=== PATIENT | female | born 1995 | race American Indian/Alaskan Native ===

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

== ENCOUNTER 2018-05-27 09:58 | Emergency (ER) | payer MEDICAID, OTHER ==
--- NOTE | 2018-05-27 10:50 | XRay Report ---
AP CHEST: HISTORY: chest pain AP view of the chest demonstrates a normal mediastinal and cardiac contour with clear lungs and normal bony and soft tissue structures. IMPRESSION: Unremarkable AP chest.
[2018-05-27] MEDS ORDERED: DUONEB *Not for PRN Use IH ONE (11:15)
--- NOTE | 2018-05-27 11:17 | Emergency Department Report ---
ED Chest Pain HPI - General Chief Complaint: Chest Pain Stated Complaint: CHEST PAIN/HEAD ACHE Time Seen by Provider: 05/27/18 10:47 Source: patient Mode of arrival: Ambulatory Limitations: No Limitations - History of Present Illness Initial Comments: 22 year-old female presents to the emergency department with complaint of a two-week history of intermittent midsternal chest pain. She says it is a sharp pain without radiation. She denies any shortness of breath but says that it "feels like the room is closing in on me." She has a past medical history of asthma. She is a tobacco smoker but denies any illicit drug use. No recent travel or sick contacts at home. She denies any lower extremity swelling. She has not taken anything for her symptoms prior to arrival. She does not have a primary care physician. Severity scale (0 -10): 6 - Related Data Previous Rx's Medication Instructions Recorded Last Taken Type Fluticasone [Flonase] 1 spray NS QDAY #1 bottle 07/17/16 Unknown Rx Loratadine [Claritin] 10 mg PO DAILY #30 tablet 07/17/16 Unknown Rx RX: Promethazine /Codeine 5 ml PO Q6H PRN #100 ml 07/17/16 Unknown Rx [Phenergan/Codeine 6.25-10 mg/5 ml] guaiFENesin/CODEINE [Robitussin AC] 5 ml PO Q6H PRN #100 ml 05/27/18 Unknown Rx Allergies Allergy/AdvReac Type Severity Reaction Status Date / Time No Known Allergies Allergy Verified 05/27/18 09:58 Heart Score - HEART Score History: Slightly suspicious EKG: Normal Age: < 45 Risk factors: 1-2 risk factors Troponin: < normal limit HEART Score: 1 - Critical Actions Critical Actions: 0-3 pts:0.9-1.7%risk of adverse cardiac event.Candidate for discharge ED Review of Systems ROS: Stated complaint: CHEST PAIN/HEAD ACHE Other details as noted in HPI Comment: All other systems reviewed and negative Constitutional: denies: chills, fever Eyes: denies: eye pain, vision change ENT: denies: ear pain, throat pain Respiratory: cough. denies: shortness of breath Cardiovascular: chest pain. denies: edema Gastrointestinal: denies: abdominal pain, vomiting Genitourinary: denies: dysuria, discharge Musculoskeletal: denies: back pain, arthralgia Skin: denies: rash, lesions Neurological: denies: headache, weakness ED Past Medical Hx - Past Medical History Hx Asthma: Yes - Surgical History Past Surgical History?: No - Social History Smoking Status: Current Every Day Smoker Substance Use Type: None - Medications Home Medications: Home Medications Medication Instructions Recorded Confirmed Last Taken Type Fluticasone [Flonase] 1 spray NS QDAY #1 bottle 07/17/16 Unknown Rx Loratadine [Claritin] 10 mg PO DAILY #30 tablet 07/17/16 Unknown Rx RX: Promethazine /Codeine 5 ml PO Q6H PRN #100 ml 07/17/16 Unknown Rx [Phenergan/Codeine 6.25-10 mg/5 ml] guaiFENesin/CODEINE [Robitussin AC] 5 ml PO Q6H PRN #100 ml 05/27/18 Unknown Rx ED Physical Exam - General Limitations: No Limitations - Other Other exam information: GENERAL: The patient is well-developed well-nourished. HEENT: Normocephalic. Atraumatic. Patient has moist mucous membranes. EYES: Extraocular motions are intact. Pupils are equal and reactive to light bilaterally. NECK: Supple. Trachea is midline. CHEST/LUNGS: Clear to auscultation. There is no respiratory distress noted. An occasional bronchospastic cough is heard during examination. There is some reproducible chest pain to palpation of the chest wall. No crepitus or deformity. HEART/CARDIOVASCULAR: Regular. There is mild tachycardia. There is no obvious murmur. ABDOMEN: Abdomen is soft, nontender. Patient has normal bowel sounds. There is no abdominal distention. SKIN: Skin is warm and dry. NEURO: The patient is awake, alert, and oriented. The patient is cooperative. The patient has no focal neurologic deficits. The patient has normal speech. MUSCULOSKELETAL: There is no tenderness or deformity. There is no evidence of acute injury. ED Course Vital Signs 05/27/18 05/27/18 05/27/18 10:02 10:59 11:00 Temperature 98.5 F Pulse Rate 114 H 78 84 Pulse Rate [ Anterior Bilateral Throughout] Respiratory 18 21 26 H Rate Respiratory Rate [Anterior Bilateral Throughout] Blood Pressure 143/89 120/67 Blood Pressure [Right] O2 Sat by Pulse 100 100 Oximetry 05/27/18 05/27/18 12:27 13:11 Temperature Pulse Rate 77 Pulse Rate [ 73 Anterior Bilateral Throughout] Respiratory 16 Rate Respiratory 17 Rate [Anterior Bilateral Throughout] Blood Pressure Blood Pressure 124/72 [Right] O2 Sat by Pulse 99 Oximetry NOMI score - Nomi Score Age > 65: (0) No Aspirin use within the Past 7 Days: (0) No 3 or more CAD Risk Factors: (0) No 2 or more Angina events in past 24 hrs: (1) Yes (If pain is considered angina) Known CAD with more than 50% Stenosis: (0) No Elevated Cardiac Markers: (0) No ST Deviation Greater than 0.5mm: (0) No NOMI Score: 1 ED Medical Decision Making - Lab Data Result diagrams: 05/27/18 11:38 05/27/18 11:38 - EKG Data -: EKG Interpreted by Me EKG shows normal: sinus rhythm, axis, intervals, QRS complexes, ST-T waves Rate: normal - EKG Data When compared to previous EKG there are: previous EKG unavailable Interpretation: normal EKG - Radiology Data Radiology results: image reviewed interpreted by me: Chest x-ray does not show any pneumothorax, pleural effusion, pneumonia or obvious focal consolidation. - Medical Decision Making 22-year-old female presents with a two-week history of intermittent chest pain. Her only risk factor is tobacco use. EKG did not show any signs of ST elevation DE, ischemia or dysrhythmia. Chest x-ray did not show any pneumonia, pleural effusions, focal consolidation or pneumothorax. Labs were unremarkable including a negative troponin. The patient was given some Toradol for her discomfort. She was also given a DuoNeb. She has a bronchospastic cough. Vital signs stable throughout her ED course. The patient appears safe for discharge home. She was given Robitussin-AC for her cough and has an albuterol inhaler at home to use. She was given referrals for primary care and cardi ology. She will return to the ER with any worsening of her symptoms or any acute distress. - Differential Diagnosis DE, Bronchitis, Pneumonia, Asthma Critical Care Time: No Critical care attestation.: If time is entered above; I have spent that time in minutes in the direct care of this critically ill patient, excluding procedure time. ED Disposition Clinical Impression: Atypical chest pain URI (upper respiratory infection) Qualifiers: URI type: unspecified viral URI Qualified Code(s): J06.9 - Acute upper respiratory infection, unspecified Disposition: DC- TO HOME OR SELFCARE Is pt being admited?: No Condition: Stable Instructions: Chest Pain (ED) Additional Instructions: Please follow up with a primary care physician in the next few days. I have also given a referral for a local director of enterprise architecture, Dr. Cevallos, to follow up with you continue to have the intermittent chest pains. Return to the emergency Department with any worsening of your symptoms or any acute distress. I have prescribed Robitussin-AC for your cough. You have been prescribed a medication that can be sedating. Therefore, this medication cannot be taken prior to driving, working, being responsible for children, and cannot be mixed with alcohol of any quantity. Prescriptions: guaiFENesin/CODEINE [Robitussin AC] 5 ml PO Q6H PRN #100 ml PRN Reason: Cough Referrals: CHRISTIE DOUGLAS DO [Primary Care Provider] - 3-5 Days GERMAINE CEVALLOS MD [Staff Physician] - 3-5 Days [facility] [Outside] - 3-5 Days Forms: Work/School Release Form(ED) Time of Disposition: 13:00
[2018-05-27 12:00] LABS: Basophils # (Auto) 0.1 K/mm3 (0.0-0.1); Basophils % (Auto) 1.3 % (0.0-1.8); Eosinophils # (Auto) 0.3 K/mm3 (0.0-0.4); Eosinophils % (Auto) 6.7 % (0.0-4.3); Hemoglobin 13.5 gm/dl (10.1-14.3); Lymphocytes # (Auto) 1.5 K/mm3 (1.2-5.4); Lymphocytes % (Auto) 28.5 % (13.4-35.0); Mean Corpuscular HGB Conc 34 % (30-34); Mean Corpuscular Volume 85 fl (79-97); Monocytes # (Auto) 0.5 K/mm3 (0.0-0.8); Monocytes % (Auto) 10.5 % (0.0-7.3); Platelet Count 275 K/mm3 (140-440); Red Blood Count 4.68 M/mm3 (3.65-5.03); Red Cell Distribution Width 13.8 % (13.2-15.2)
[2018-05-27] MEDS ORDERED: TORADOL IM ONE (12:13)
[2018-05-27 12:14] LABS: Alanine Aminotransferase 21 units/L (7-56); Albumin 3.8 g/dL (3.9-5); BUN/Creatinine Ratio 25; Blood Urea Nitrogen 15 mg/dL (7-17); Hemolysis Index 12
[2018-05-27 13:12] VITALS: BP 124/72
== END 2018-05-27 13:14 | disposition home or self-care (01) ==
LOC: ED 09:58
DX: J06.9 Acute upper respiratory infection, unspecified (principal); R07.89 Other chest pain; J45.909 Unspecified asthma, uncomplicated; F17.200 Nicotine dependence, unspecified, uncomplicated
CPT/HCPCS: 36415; 71045; 80053; 84484; 84703; 85025; 93005; 93010; 96372; 99284; J1885

== ENCOUNTER 2022-01-09 21:11 | Emergency (ER) | payer OTHER ==
--- NOTE | 2022-01-10 01:40 | Emergency Department Report ---
ED General Adult HPI - General Stated complaint: RT SIDE BREAST LUMP Source: patient, RN notes reviewed Limitations: No Limitations - History of Present Illness Initial comments: - History of Present Illness Initial comments: Patient 20-year-old female who presents for current abscess to right breast there is no fevers no chills no nausea or vomiting. Patient states abscess ruptured 4 days ago however has been recurring for the past year requesting referral to breast surgery. There is currently no fevers no chills no nausea no vomiting. There is minimal pain at 3/10 Essick relieved with ibuprofen p.o. as needed - Related Data Previous Rx's Medication Instructions Recorded Last Taken Type Fluticasone [Flonase] 1 spray NS QDAY #1 bottle 07/17/16 Unknown Rx Loratadine (Nf) [Claritin] 10 mg PO DAILY #30 tablet 07/17/16 Unknown Rx Promethazine /Codeine 5 ml PO Q6H PRN #100 ml 07/17/16 Unknown Rx [Phenergan/Codeine 6.25-10 mg/5 ml] guaiFENesin/CODEINE [Robitussin AC] 5 ml PO Q6H PRN #100 ml 05/27/18 Unknown Rx Ibuprofen [Motrin 800 MG tab] 800 mg PO Q8HR PRN #30 tablet 01/10/22 Unknown Rx cephALEXin [Keflex] 500 mg PO TID 7 Days #21 cap 01/10/22 Unknown Rx Allergies Allergy/AdvReac Type Severity Reaction Status Date / Time No Known Allergies Allergy Verified 05/27/18 09:58 ED Review of Systems ROS: Stated complaint: RT SIDE BREAST LUMP Other details as noted in HPI Constitutional: denies: chills, fever Eyes: denies: eye pain, eye discharge, vision change ENT: denies: ear pain, throat pain Respiratory: denies: cough, shortness of breath, wheezing Cardiovascular: denies: chest pain, palpitations Endocrine: no symptoms reported Gastrointestinal: denies: abdominal pain, nausea, diarrhea Genitourinary: denies: urgency, dysuria, discharge Musculoskeletal: denies: back pain, joint swelling, arthralgia Skin: other (Right breast mass). denies: rash, lesions Neurological: denies: headache, weakness, paresthesias Psychiatric: denies: anxiety, depression Hematological/Lymphatic: denies: easy bleeding, easy bruising Other: D Review of Systems ROS: Stated complaint: BODY PAIN Other details as noted in HPI Constitutional: denies: chills, fever Eyes: denies: eye pain, eye discharge, vision change ENT: denies: ear pain, throat pain Respiratory: denies: cough, shortness of breath, wheezing Cardiovascular: denies: chest pain, palpitations Endocrine: no symptoms reported Gastrointestinal: denies: abdominal pain, nausea, vomiting, diarrhea Genitourinary: denies: urgency, dysuria, discharge Musculoskeletal: denies: back pain, joint swelling, arthralgia Skin: other (Right breast abscess ) Neurological: denies: headache, weakness, paresthesias Psychiatric: denies: anxiety, depression Hematological/Lymphatic: denies: easy bleeding, easy bruising ED Past Medical Hx - Past Medical History Hx Asthma: Yes - Social History Smoking Status: Current Every Day Smoker Substance Use Type: None - Medications Home Medications: Home Medications Medication Instructions Recorded Confirmed Last Taken Type Fluticasone [Flonase] 1 spray NS QDAY #1 bottle 07/17/16 Unknown Rx Loratadine (Nf) [Claritin] 10 mg PO DAILY #30 tablet 07/17/16 Unknown Rx Promethazine /Codeine 5 ml PO Q6H PRN #100 ml 07/17/16 Unknown Rx [Phenergan/Codeine 6.25-10 mg/5 ml] guaiFENesin/CODEINE [Robitussin AC] 5 ml PO Q6H PRN #100 ml 05/27/18 Unknown Rx Ibuprofen [Motrin 800 MG tab] 800 mg PO Q8HR PRN #30 tablet 01/10/22 Unknown Rx cephALEXin [Keflex] 500 mg PO TID 7 Days #21 cap 01/10/22 Unknown Rx ED Physical Exam - General General appearance: alert, in no apparent distress - Head Head exam: Present: atraumatic, normocephalic - Eye Eye exam: Present: normal appearance - ENT ENT exam: Present: mucous membranes moist - Neck Neck exam: Present: normal inspection - Respiratory Respiratory exam: Present: normal lung sounds bilaterally. Absent: respiratory distress - Cardiovascular Cardiovascular Exam: Present: regular rate, normal rhythm. Absent: systolic murmur, diastolic murmur, rubs, gallop - GI/Abdominal GI/Abdominal exam: Present: soft, normal bowel sounds - Rectal Rectal exam: Present: deferred - Extremities Exam Extremities exam: Present: normal inspection, full ROM. Absent: tenderness - Back Exam Back exam: Present: normal inspection, full ROM. Absent: tenderness - Neurological Exam Neurological exam: Present: alert, oriented X3 - Psychiatric Psychiatric exam: Present: normal affect, normal mood - Skin Skin exam: Present: warm, dry, intact, erythema (Right breast mass 3:00 2 to 3 cm nonfluctuant no drainage mild erythema no axillary lymph no nipple discharge or bleeding.). Absent: rash ED Medical Decision Making - Medical Decision Making This is a recurring right breast mass with abscess plan DC to home with prescriptions, follow-up breast surgery, NSAIDs as needed pain, return to emergency department should symptoms worsen. Patient verbalized agreement and understanding with discharge plan. Patient DC'd home in stable condition at this time. Reading Recovery Teacher RN was used for this case. Critical care attestation.: If time is entered above; I have spent that time in minutes in the direct care of this critically ill patient, excluding procedure time. ED Disposition Clinical Impression: Breast abscess Breast cyst Qualifiers: Laterality: right Qualified Code(s): N60.01 - Solitary cyst of right breast Disposition: 01 HOME / SELF CARE / HOMELESS Is pt being admited?: No Does the pt Need Aspirin: No Condition: Stable Instructions: Breast Cyst, Mastitis, [id number] Additional Instructions: Take medication as prescribed, follow-up with breast surgery in 2 to 3 days. Return to emergency department if symptoms worsen. Prescriptions: cephALEXin [Keflex] 500 mg PO TID 7 Days #21 cap Ibuprofen [Motrin 800 MG tab] 800 mg PO Q8HR PRN #30 tablet PRN Reason: pain fever Referrals: RITO HINTON MD [Staff Physician] - 3-5 Days Forms: Work/School Release Form(ED) Time of Disposition: 01:48
[2022-01-10 03:16] VITALS: BP 124/72
== END 2022-01-10 02:04 | disposition home or self-care (01) ==
LOC: ED 21:11
DX: N61.1 Abscess of the breast and nipple (principal); N60.09 Solitary cyst of unspecified breast; F17.200 Nicotine dependence, unspecified, uncomplicated; J45.909 Unspecified asthma, uncomplicated
CPT/HCPCS: 99282